=== PATIENT | female | born 1975 | race Caucasian/White ===

== ENCOUNTER 2022-03-01 09:37 | Emergency (ER) | payer BC ==
[2022-03-01 09:57] VITALS: BP 162/98; PULSE 70; TEMP 97.8; BMI 27.3
== END 2022-03-01 10:03 | disposition home or self-care (01) ==
LOC: JER 09:37 → JERFT 09:37
DX: S80.861A Insect bite (nonvenomous), right lower leg, initial encounter (principal); W57.XXXA Bitten or stung by nonvenomous insect and other nonvenomous arthropods, initial encounter
CPT/HCPCS: 99281-25

== ENCOUNTER 2022-04-27 13:22 | Emergency (ER) | payer BC ==
[2022-04-27 13:39] VITALS: BP 140/92; PULSE 77; TEMP 98.2; BMI 29.2
[2022-04-27 14:11] LABS: BASO % 0.7 % (0-2.0); EOS % 3.9 % (0-4.5); HEMATOCRIT 38.5 % (32.4-45.2); HEMOGLOBIN 12.8 GM/dL (10.7-15.3); LYMPH % 22.3 % (8-40); MCH 30.4 pg (25.7-33.7); MCHC 33.3 g/dl (32.0-36.0); MEAN CELL VOLUME 91.4 fl (80-96); MEAN PLT VOLUME 10.6 fl (7.5-11.1); MONO % 4.8 % (3.8-10.2); NEUT % 68.3 % (42.8-82.8); PLATELET COUNT 222 10^3/uL (134-434); RBC 4.21 M/mm3 (3.60-5.2); RDW 13.8 % (11.6-15.6)
[2022-04-27 14:14] LABS: CALCIUM 9.5 mg/dL (8.5-10.1)
[2022-04-27 14:15] LABS: ALBUMIN 4.1 g/dl (3.4-5.0); BLOOD UREA NITROGEN 13.4 mg/dL (7-18); MAGNESIUM 2.4 mg/dL (1.8-2.4)
[2022-04-27 14:18] LABS: CREATININE 0.9 mg/dL (0.55-1.3)
[2022-04-27 14:19] LABS: BILIRUBIN,TOTAL 0.6 mg/dL (0.2-1)
[2022-04-27 14:20] LABS: INR 1.02 (0.83-1.09); PROTHROMBIN TIME (PATIENT) 11.7 SEC (9.7-13.0)
== END 2022-04-27 15:49 | disposition home or self-care (01) ==
LOC: JERFT 13:22
DX: N93.9 Abnormal uterine and vaginal bleeding, unspecified (principal)
CPT/HCPCS: 36415; 76830-TC; 80053; 83735; 84703; 85025; 85610; 86850; 86900; 86901; 99284-25